=== PATIENT | female | born 1960 | race Caucasian/White ===

== ENCOUNTER 2017-05-04 16:56 | Emergency (ER) | payer OTHER ==
[~2017-05-04] VITALS: Ht 167.6 cm; Wt 91.0 kg
[~2017-05-04 16:56] MED LIST: ATENOLOL25 M1 PO; Glucophage PO; HYDROCODON-ACE1 EAC7 PO; Levothroid,Synthroid PO; Melatonin PO; Motrin PO; Mycostatin PO; NAPROSYN500 MG PO; Naprosyn PO; Neurontin PO; Percocet 5/325,Endoc PO; RELPAX20 MG PO; TRAMADOL HCL50 MG PO; Tenormin PO
[2017-05-04 17:44] LABS: HEMATOCRIT 39.4 % (36.0-46.0); MCH 30.6 PG (29.0-34.0); MCHC 34.8 G/DL (30.0-36.0); MCV 88.1 FL (83-99); MEAN PLAT.VOLUME 10.5 uM^3 (9.5-12.4); PLATELET COUNT 205 K/uL (156-360); RBC DIS.WIDTH-CV 13.4 % (11.8-14.6); RBC DIS.WIDTH-SD 43.3 % (39-53); RED BLOOD COUNT 4.47 M/uL (3.80-5.20); WHITE BLOOD COUNT 7.3 K/uL (4.1-10.2)
[2017-05-04 17:51] LABS: CHLORIDE 104 mEq/L (99-109); POTASSIUM 3.8 mEq/L (3.7-5.4); SODIUM 137 mEq/L (136-147)
[2017-05-04 17:53] LABS: GLUCOSE 133 mg/dL (70-99)
[2017-05-04 17:54] LABS: ANION GAP 20 MEQ/L (2-14)
[2017-05-04 17:55] LABS: TOTAL BILIRUBIN 0.6 mg/dL (0.0-1.0)
[2017-05-04 17:57] LABS: ALKALINE PHOSPHATASE 86 IU/L (3-129); GFR ESTIMATE (CALCULATED) 49 mL/min/
[2017-05-04 18:02] LABS: ADD MIUA? YES; BILIRUBIN NEGATIVE; BLOOD NEGATIVE; COLOR YELLOW ((YELLOW)); GLUCOSE (STRIP) 50; KETONES NEGATIVE; LEUKOCYTES NEGATIVE; NITRITE NEGATIVE; PROTEIN (STRIP) NEGATIVE; SPECIFIC GRAVITY 1.008 (1.000-1.030); UROBILINOGEN 0.2 MG/DL (0.2-1.0)
[2017-05-04 18:08] LABS: BACTERIA RARE /HPF; EPITHELIAL CELLS 2+ /HPF; MUCUS TRACE /LPF; RED BLOOD CELLS 0-5 /HPF (0-5); WHITE BLOOD CELLS 0-5 /HPF (0-5)
[2017-05-04 18:12] LABS: POINT-OF-CARE METER ID UU13113702
[2017-05-04 18:18] LABS: EOSINOPHIL (%) 3.7 % (0-5); EOSINOPHIL COUNT 0.3 K/uL (0-0.3); IMMATURE GRANULOCYTE (%) 1.5 % (0.0-0.7); IMMATURE GRANULOCYTE COUNT 0.1 K/uL; INSTRUMENT ABS NEUTROPHIL CT 3.1 K/uL; LYMPHOCYTE COUNT 2.8 K/uL (1.0-2.8); MONOCYTE (%) 11.9 % (3-12); MONOCYTE COUNT 0.9 K/uL (0-0.8); NEUTROPHIL (%) 43.3 % (45-76); NEUTROPHIL COUNT 3.1 K/uL (1.8-6.4)
[2017-05-04 19:20] LABS: UREA NITROGEN (BUN) 13 mg/dL (9-23)
[2017-05-04 19:34] LABS: LIPASE 50 U/L (1.0-51.0)
[2017-05-04] MEDS ORDERED: ATARAX,VISTARIL50 MG PO (20:48)
[2017-05-04] MEDS ORDERED: ZOFRAN ODT4 MG PO (20:48)
[2017-05-04] MEDS ORDERED: MEDROL DOSEPAK4 MG PO (20:48)
[2017-05-04 21:33] VITALS: BP 113/67
== END 2017-05-04 21:45 | disposition home or self-care (01) ==
LOC: EME 16:56
PROVIDERS: Nurse Practitioner Family; Physician Assistant
DX: R11.2 Nausea with vomiting, unspecified (principal); R19.7 Diarrhea, unspecified; L25.9 Unspecified contact dermatitis, unspecified cause; I10 Essential (primary) hypertension; E11.9 Type 2 diabetes mellitus without complications; M79.7 Fibromyalgia; E06.3 Autoimmune thyroiditis; Z79.84 Long term (current) use of oral hypoglycemic drugs; Z91.19 Patient's noncompliance with other medical treatment and regimen
CPT/HCPCS: 71020; 80053; 81003; 82803; 82948; 83605; 83690; 85025; 99281; 99285; J7030; J7512

== ENCOUNTER 2018-01-26 20:08 | Emergency (ER) | payer OTHER ==
[~2018-01-26] VITALS: Ht 167.6 cm; Wt 89.7 kg
[~2018-01-26 20:08] MED LIST changes: +ATARAX,VISTARIL50 MG PO; +MEDROL DOSEPAK4 MG PO; +ZOFRAN ODT4 MG PO
[2018-01-26] MEDS ORDERED: MOTRIN600 MG PO (23:33)
[2018-01-26] MEDS ORDERED: ULTRACET1 TABLET PO (23:33)
[2018-01-26 23:41] VITALS: BP 139/89
== END 2018-01-26 23:42 | disposition home or self-care (01) ==
LOC: EME 20:08
DX: S50.02XA Contusion of left elbow, initial encounter (principal); S20.219A Contusion of unspecified front wall of thorax, initial encounter; S09.90XA Unspecified injury of head, initial encounter; W10.9XXA Fall (on) (from) unspecified stairs and steps, initial encounter; E11.40 Type 2 diabetes mellitus with diabetic neuropathy, unspecified; I10 Essential (primary) hypertension; E06.3 Autoimmune thyroiditis; M79.7 Fibromyalgia; D64.9 Anemia, unspecified; Z88.1 Allergy status to other antibiotic agents; Z88.8 Allergy status to other drugs, medicaments and biological substances
CPT/HCPCS: 71101; 73080; 99281; 99284